=== PATIENT | male | born 1945 | race Caucasian/White ===

== ENCOUNTER 2023-02-04 10:04 | Emergency (ER) | payer MEDICARE ==
[~2023-02-04] VITALS: Ht 170.2 cm; Wt 120.5 kg
[~2023-02-04 10:04] MED LIST: ALBU17AE26 PO; AMOX-117 PO; ATOR-2 PO; BENA40TA90 PO; FLUT16SP11 BOTHNARES; FURO20TA4 PO; HYDR-3972 PO; METO100T14 PO; POTA-206 PO; TERA10CA4 PO; TRIA1TAB3 PO
[2023-02-04] MEDS ORDERED: albuterol 2.5 MG/3 ML nebule CONTNEB PRN (10:15)
[2023-02-04] MEDS ORDERED: normal saline 1000ML IV soln IVB ONE (10:15)
[2023-02-04] MEDS ORDERED: methylPREDNISolone sod succ 125mg/2ml vial IV ONE (10:15)
[2023-02-04] MEDS ORDERED: magnesium 2GM in 50ml NS 50 ML IV ONE (10:15)
[2023-02-04] MEDS ORDERED: furosemide 10 MG/1 ML 10ml inj IV ONE (10:15)
[2023-02-04 10:50] LABS: BASOPHILS % (AUTO) 0.1 % (0-1); EOSINOPHILS # (AUTO) 0.1 X10'3 (0-0.9); HEMATOCRIT 31.4 % (42.0-52.0); HEMOGLOBIN 10.2 g/dl (14.0-17.9); LYMPHOCYTES # (AUTO) 1.1 X10'3 (1.1-4.8); LYMPHOCYTES % (AUTO) 7.8 % (21-51); MEAN CORPUSCULAR HEMOGLOBIN 28.2 PG (27.0-31.0); MEAN CORPUSCULAR HGB CONC 32.6 g/dL (33.0-36.5); MEAN CORPUSCULAR VOLUME 86.5 FL (78-98); MEAN PLATELET VOLUME 7.7 FL (7.4-10.4); MONOCYTES % (AUTO) 7.1 % (2-12); NEUTROPHILS # (AUTO) 11.7 X10'3 (1.8-7.7); PLATELET COUNT 212 X10'3 (140-440); RED BLOOD COUNT 3.63 X10'6 (4.70-6.10); RED CELL DISTRIBUTION WIDTH 16.3 % (11.5-14.5)
[2023-02-04 11:00] LABS: ALANINE AMINOTRANSFERASE 119 U/L (12-78); ALBUMIN 2.3 G/DL (3.4-5.0); ALBUMIN/GLOBULIN RATIO 0.6 (1.1-1.5); ALKALINE PHOSPHATASE 79 IU/L (46-116); ANION GAP 0 (8-16); ASPARTATE AMINO TRANSFERASE 24 U/L (10-37); BILIRUBIN,TOTAL 0.3 MG/DL (0.1-1.0); BLOOD UREA NITROGEN 12 MG/DL (7-18); BUN/CREATININE RATIO 13.6 (10.0-20.0); CALCIUM 9.5 MG/DL (8.5-10.1); CHLORIDE 100 MMOL/L (99-107); CREATININE 0.88 MG/DL (0.60-1.10); GLUCOSE 147 MG/DL (70-104); POTASSIUM 3.8 MMOL/L (3.5-5.1); SODIUM 138 MMOL/L (135-145); TOTAL CARBON DIOXIDE 38.1 MMOL/L (24-32); TOTAL PROTEIN 6.1 G/DL (6.4-8.2); eGFR 84 ML/MIN
[2023-02-04] MEDS ORDERED: iohexol 350MG/ML 100ml bottle IV ONE (11:35)
--- NOTE | 2023-02-04 13:25 | NUR ---
CALLED PT DAUGHTER, HE THINKS SHES AT WORK TRIMMING BRUSH. HER CELL PHONE MESSAGE IS FULL.
--- NOTE | 2023-02-04 13:28 | NUR ---
SPOKE TO STEPHANY PTS OTHER CONTACT. SHE IS AT HOME BUT CANNOT DRIVE. SHE WILL CALL HIS DAUGHTER. SHE REPORTS TAX CAB WOULD BE DIFFICULT BC HE NEEDS HELP UP STAIRS TO GET IN HOUSE.
--- NOTE | 2023-02-04 15:10 | NUR ---
PT'S DAUGHTER IS UNABLE TO SLUBBER TENDER PT TO TAKE HOME. WILL COORDINATE MEDICAL TRANSFER
--- NOTE | 2023-02-04 16:41 | NUR ---
Called Nola and Daughter for ride. Daughter did not answer, Nola said she is unable to leave the house. CRN aware and was able to get a transport service to come pick patient up.
[2023-02-04 18:59] VITALS: BP 174/84
== END 2023-02-04 19:02 | disposition home or self-care (01) ==
LOC: ER 10:04
DX: J44.1 Chronic obstructive pulmonary disease with (acute) exacerbation (principal); R60.9 Edema, unspecified; I10 Essential (primary) hypertension; E78.00 Pure hypercholesterolemia, unspecified
CPT/HCPCS: 36415; 71045; 71275; 80053; 83880; 84484; 85025; 93005; 94640; 94644; 96374; 96375; 99285; J1940; J2930; J3475; J3490; J7030; J7040; Q9967; 88304; 94760; A4615; A7015